=== PATIENT | male | born 1970 | race Caucasian/White ===

== ENCOUNTER 2020-10-10 07:09 | Emergency (ER) | payer OTHER ==
[~2020-10-10] VITALS: Ht 190.5 cm; Wt 120.2 kg
[~2020-10-10 07:09] MED LIST: CYCL-181; DIAZ5TAB; DULO60CA; MIRT-68; NAPR1TAB24; NOR10T; OME20GT
[2020-10-10] MEDS ORDERED: ASPirin 81 mg TAB PO ONE (07:30)
[2020-10-10] MEDS ORDERED: NITROGLYCERIN 0.4 MG SL TAB SL ONE (07:30)
[2020-10-10 07:45] LABS: Eosinophils # (auto) 0.1 10 ^3/uL (0-0.8); Hemoglobin 11.6 g/dL (13.5-17.5); Monocytes # (auto) 0.3 10 ^3/uL (0-1.3); Neutrophils # (auto) 3.2 10 ^3/uL (1.6-8.6); Nucleated Red Blood Cells % 0.1 %; White Blood Cell 4.7 10^3/uL (4.4-10.8)
[2020-10-10 07:49] LABS: Basophils # (auto) 0.1 10 ^3/uL (0-0.2); Basophils % (auto) 1.1 % (0.0-2.0); Eosinophils % (auto) 2.9 % (0.0-7.0); Lymphocytes % (auto) 21.8 % (10.0-50.0); Mean Corpuscular Hemoglobin 26.8 pg (28.0-32.0); Mean Corpuscular Volume 81.1 fL (80.0-100.0); Monocytes % (auto) 5.6 % (0.0-12.0); Neutrophils % (auto) 68.6 % (37.0-80.0); Red Blood Cells 4.32 10^6/uL (4.5-5.90); Red Cell Distribution Width 14.4 % (11.8-14.3)
[2020-10-10 07:59] LABS: Alanine Aminotransferase 19 U/L (16-61); Albumin 4.2 g/dL (3.4-5.0); Anion Gap 7 (5-15); Blood Urea Nitrogen 20 mg/dL (7-18); Calcium 8.7 mg/dL (8.5-10.1); Carbon Dioxide 24 mmol/L (21-32); Chloride 107 mmol/L (98-107); Glucose 112 mg/dL (74-106); Potassium 4.1 mmol/L (3.5-5.1); Sodium 138 mmol/L (136-145)
[2020-10-10 07:59] LABS: Urine Bacteria NONE SEEN /hpf (None Seen); Urine Blood Negative /uL (Negative); Urine Mucus FEW (None Seen); Urine Specific Gravity 1.012 (1.001-1.035); Urine WBC <1 /hpf (0 - 3)
[2020-10-10 08:05] LABS: Alkaline Phosphatase 39 U/L (45-117); Aspartate Aminotransferase 15 U/L (15-37); BUN/Creatinine Ratio 12.4; Bilirubin, Total 0.4 mg/dL (0.2-1.0); GFR African American 58 mL/min; GFR Non-African American 48 mL/min; Total Protein 7.4 g/dL (6.4-8.2)
[2020-10-10 08:49] VITALS: BP 117/72
== END 2020-10-10 08:49 | disposition home or self-care (01) ==
LOC: ER 07:09
DX: R07.89 Other chest pain (principal); I10 Essential (primary) hypertension; F17.210 Nicotine dependence, cigarettes, uncomplicated; Z79.899 Other long term (current) drug therapy
CPT/HCPCS: 36415; 71045; 80053; 81001; 84443; 84484; 85025; 93005

== ENCOUNTER 2024-12-09 16:03 | Inpatient (IN) | payer OTHER, MEDICARE ==
[~2024-12-09] VITALS: Ht 190.5 cm; Wt 113.4 kg
[~2024-12-09 16:03] MED LIST changes: +DIAZ-681; -DIAZ5TAB; -DULO60CA; +DULO60CA41; -MIRT-68; +MIRT-93
--- NOTE | 2024-12-09 16:12 | ECG ---
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
--- NOTE | 2024-12-09 16:28 | ED.PDOC ---
History of Present Illness HPI Comments 54-year-old male came to the ER stating he is having chest discomfort. He was at a restaurant after ordering food he started to have chest discomfort sweating. He went to the bathroom to wash his face when he almost passed out. His heart rate was 111 on arrival with saturation of 89 % on room air. He was placed on 2 L oxygen was went up to 92%. He does have a history of hypotension for which he takes amlodipine lisinopril metoprolol. He has never had any heart problems in the past. His blood sugar was 129 on arrival. Denies any other symptoms. Chief Complaint: Chest Pain Time Seen by MD: 16:10 Primary Care Provider: DR.G BRAUN Reviewed Notes: Nurses Notes, Medications, Allergies Allergies: Coded Allergies: NO KNOWN ALLERGIES (Unverified , 01/25/12) Home Meds Reported Medications Cyclobenzaprine Hcl (Flexeril) 10 Mg Tb 01/25/12 Mirtazapine (Remeron) 15 Mg Tab 01/25/12 Duloxetine Hcl (Cymbalta) 60 Mg Cap 01/25/12 Diazepam (Valium) 5 Mg Tab 01/25/12 Naproxen (Naproxen Ec) 500 Mg Tab 01/25/12 Hydrocodone-Acetaminophen ([place] 10/325MG) 1 Tab Tb 01/25/12 Omeprazole (Prilosec Susp (For Gt)) 20 Mg Ss 01/25/12 Information Source: Patient Mode of Arrival: Ambulatory Severity: Moderate Timing: Hours Duration: Since onset Past Medical History PAST MEDICAL HISTORY: HTN Surgical History: Denies all surgeries Family History Family History: Unknown Social History Smoker: Less Than 1 Pack/Day Alcohol: Denies ETOH Use Drugs: Denies Drug Use Lives In: Home Constitutional: denies: chills, diaphoresis, fatigue, fever, malaise, sweats, weakness, others EENTM: denies: blurred vision, double vision, ear bleeding, ear discharge, ear drainage, ear pain, ear ringing, eye pain, eye redness, hearing loss, mouth pain, mouth swelling, nasal discharge, nose bleeding, nose congestion, nose pain, photophobia, tearing, throat pain, throat swelling, voice changes, others Respiratory: denies: cough, hemoptysis, orthopnea, SOB at rest, shortness of breath, SOB with excertion, stridor, wheezing, others Cardiovascular: reports: chest pain; denies: dizzy spells, diaphoresis, Dyspnea on exertion, edema, irregular heart beat, left arm pain, lightheadedness, palpitations, PND, syncope, others Gastrointestinal: denies: abdomen distended, abdominal pain, blood streaked bowels, constipated, diarrhea, dysphagia, difficulty swallowing, hematemesis, melena, nausea, poor appetite, poor fluid intake, rectal bleeding, rectal pain, vomiting, others Genitourinary: denies: burning, dysuria, flank pain, frequency, hematuria, inc ontinence, penile discharge, penile sore, pain, testicle pain, testicle swelling, urgency, others Neurological: denies: dizziness, fainting, headache, left sided numbness, left sided weakness, numbness, paresthesia, pre-existing deficit, right sided numbness, right sided weakness, seizure, speech problems, tingling, tremors, weakness, others Musculoskeletal: denies: back pain, gout, joint pain, joint swelling, muscle pain, muscle stiffness, neck pain, others Integumetry: denies: bruises, change in color, change in hair/nails, dryness, laceration, lesions, lumps, rash, wounds, others Allergic/Immunocompromised: denies: Difficulty Healing, Frequent Infections, Hives, Itching, others Hematologic/Lymphatic: denies: anemia, blood clots, easy bleeding, easy bruising, swollen glands, others Endocrine: denies: excessive hunger, excessive sweating, excessive thirst, excessive urination, flushing, intolerance to cold, intolerance to heat, unexplained weight gain, unexplained weight loss, others Psychiatric: denies: anxiety, bipolar disorder, depression, hopeless, panic disorder, schizophrenia, sleepless, suicidal, others Physical Exam General Appearance: Moderate Distress HEENT: Normal ENT Inspection, Pharynx Normal, TMs Normal Neck: Full Range of Motion, Non-Tender, Normal, Normal Inspection Respiratory: Chest Non-Tender, Lungs Clear, No Accessory Muscle Use, No Respiratory Distress, Normal Breath Sounds Cardiovascular: Tachycardia Breast Exam: Deferred Gastrointestinal: No Organomegaly, Non Tender, No Pulsatile Mass, Normal Bowel Sounds, Soft Genitalia: Deferred Pelvic: Deferred Rectal: Deferred Extremities: No calf tenderness, Normal capillary refill, Normal inspection, Normal range of motion, Non-tender, No pedal edema Musculoskeletal : Apperance: Normal Neurologic: Alert, 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 Was a procedure done?: No EKG EKG : Pulse Rate (adult): 111 Cardiac Rhythm: ST Differential Dx Considerations may include: Coronary artery disease Electrolyte imbalance X-Ray, Labs, Meds, VS Vital Signs Date Time Temp Pulse Resp B/P (MAP) Pulse Ox O2 Delivery O2 Flow Rate FiO2 12/09/24 16:55 94 12/09/24 16:52 99 20 128/77 12/09/24 16:40 128/77 12/09/24 16:28 111 12/09/24 16:20 98.2 100 19 120/79 (93) 94 98.2 12/09/24 16:08 101 Lab Test 12/09/24 17:16 12/09/24 16:21 12/09/24 16:10 Range/Units Troponin I High Sensitivity Pending 11 </=54 ng/L White Blood Count 11.3 H 4.4-10.8 10^3/uL Red Blood Count 4.70 4.5-5.90 10^6/uL Hemoglobin 12.0 L 13.5-17.5 g/dL Hematocrit 36.7 L 41.0-53.0 % Mean Corpuscular Volume 78.1 L 80.0-100.0 fL Mean Corpuscular Hemoglobin 25.5 L 28.0-32.0 pg Mean Corpuscular Hemoglobin Concent 32.6 32.0-36.0 g/dL Red Cell Distribution Width 15.2 H 11.8-14.3 % Platelet Count 263 140-450 10^3/uL Mean Platelet Volume 9.2 6.9-10.8 fL Neutrophils (%) (Auto) 73.1 37.0-80.0 % Lymphocytes (%) (Auto) 21.1 10.0-50.0 % Monocytes (%) (Auto) 3.6 0.0-12.0 % Eosinophils (%) (Auto) 1.8 0.0-7.0 % Basophils (%) (Auto) 0.4 0.0-2.0 % Neutrophils # (Auto) 8.3 1.6-8.6 10 ^3/uL Lymphocytes # (Auto) 2.4 0.4-5.4 10 ^3/uL Monocytes # (Auto) 0.4 0-1.3 10 ^3/uL Eosinophils # (Auto) 0.2 0-0.8 10 ^3/uL Basophils # (Auto) 0 0-0.2 10 ^3/uL Nucleated Red Blood Cells 0.0 % D-Dimer, Quantitative 0.36 0.0-0.49 mg/L FEU Sodium Level 138 136-145 mmol/L Potassium Level 3.8 3.5-5.1 mmol/L Chloride Level 106 98-107 mmol/L Carbon Dioxide Level 21 20-31 mmol/L Anion Gap 11 5-15 Blood Urea Nitrogen 16 9-23 mg/dL Creatinine 1.37 H 0.700-1.30 mg/dL Glomerular Filtration Rate Calc 61 >90 mL/min BUN/Creatinine Ratio 11.7 10.0-20.0 Serum Glucose 146 H 74-106 mg/dL Calcium Level 9.4 8.7-10.4 mg/dL POC Glucose 129 H 70-106 mg/dl Current Medications Medications (Trade) Dose Ordered Sig/Kary Route Start Time Stop Time Status Last Admin Aspirin (Ecotrin Enteric Coated Tablet) 325 mg ONCE ONCE PO 12/09/24 16:30 12/09/24 16:31 DC 12/09/24 16:41 Morphine Sulfate 4 mg ONCE ONCE IV 12/09/24 16:30 12/09/24 16:31 DC 12/09/24 16:52 Ondansetron HCl (Zofran) 4 mg ONCE ONCE IV 12/09/24 16:30 12/09/24 16:31 DC 12/09/24 16:41 Nitroglycerin (Ntrostat Sublingual) 0.4 mg ONCE ONCE SL 12/09/24 16:30 12/09/24 16:31 DC 12/09/24 16:40 Patient alert pain Complaining of chest pain. Saturation in the low side. Placed on oxygen. EKG reviewed does show sinus tachycardia. Patient continues to have chest discomfort. Has risk factors for coronary artery disease. Was given aspirin. Was given nitro. Was given morphine. Was given Zofran. Reviewed his history. Explained to the patient. Continue cardiac monitoring. Possibly will need echocardiogram. Cardiology consultation. Blood sugar elevated. [employer] approved inpatient admission [phone]. Time of 1ST Reevaluation: 16:26 Reevaluation 1ST: Unchanged Patient Education/Counseling: Diagnosis, Treatment, Prognosis Family Education/Counseling: No Family Present Departure 1 Departure Time of Disposition: 16:27 Impression: Primary Impression: Chest pain of unknown etiology Additional Impressions: HTN (hypertension) Qualified Codes: I10 - Essential (primary) hypertension Diabetes mellitus, new onset Disposition: ADMITTED INPATIENT Admit to: Med Surg Condition: Guarded Critical Care Note Critical Care Time?: Yes (90 min-critical care time only) Critical care comment: Continue monitor chest discomfort. Stability Stability form required: No Heart Score Heart Score: Heart Score Response (Comments) Value History Slightly Suspicious 0 EKG Normal 0 Age 45-64 1 Risk Factors >3 or Hx ASHD 2 Troponin Normal limit 0 Total 3 MANDA PRESSLEY MD December 09, 2024 16:28
[2024-12-09] MEDS: NITROGLYCERIN 0.4 MG SL TAB SL ONE (16:40)
[2024-12-09] MEDS: ASPirin-EC 325mg tab PO ONE (16:41)
[2024-12-09] MEDS: ONDANSETRON HCL 4 MG/2 ML VIAL IV ONE (16:41)
[2024-12-09 16:47] LABS: Chloride 106 mmol/L (98-107); Potassium 3.8 mmol/L (3.5-5.1); Sodium 138 mmol/L (136-145)
[2024-12-09 16:48] LABS: Anion Gap 11 (5-15); Carbon Dioxide 21 mmol/L (20-31)
[2024-12-09 16:49] LABS: Calcium 9.4 mg/dL (8.7-10.4)
[2024-12-09 16:50] LABS: Basophils # (auto) 0 10 ^3/uL (0-0.2); Basophils % (auto) 0.4 % (0.0-2.0); Eosinophils # (auto) 0.2 10 ^3/uL (0-0.8); Eosinophils % (auto) 1.8 % (0.0-7.0); Hematocrit 36.7 % (41.0-53.0); Lymphocytes # (auto) 2.4 10 ^3/uL (0.4-5.4); Lymphocytes % (auto) 21.1 % (10.0-50.0); Mean Corpuscular Hemoglobin 25.5 pg (28.0-32.0); Mean Corpuscular Hgb Conc. 32.6 g/dL (32.0-36.0); Mean Corpuscular Volume 78.1 fL (80.0-100.0); Monocytes # (auto) 0.4 10 ^3/uL (0-1.3); Monocytes % (auto) 3.6 % (0.0-12.0); Neutrophils # (auto) 8.3 10 ^3/uL (1.6-8.6); Neutrophils % (auto) 73.1 % (37.0-80.0); Platelet Count (auto) 263 10^3/uL (140-450); Red Cell Distribution Width 15.2 % (11.8-14.3); White Blood Cell 11.3 10^3/uL (4.4-10.8)
[2024-12-09] MEDS: MORPHINE SULFATE 4 MG/ML SYR/VIAL IV ONE (16:52)
[2024-12-09 16:53] LABS: BUN/Creatinine Ratio 11.7 (10.0-20.0); Blood Urea Nitrogen 16 mg/dL (9-23)
[2024-12-09 17:00] LABS: Glucose 146 mg/dL (74-106)
--- NOTE | 2024-12-09 18:09 | DVH ---
EXAM: XY CHEST PORTABLE TECHNIQUE: Single frontal chest radiograph CLINICAL HISTORY: sob COMPARISON: CHEST PORTABLE on DOS: 10/10/20 Findings/Impression: Frontal chest radiograph demonstrates no acute osseous or superficial soft tissue abnormalities. The trachea is midline. The cardiac silhouette and mediastinum are within normal limits. Right basilar atelectasis versus developing infection. No pneumothorax or pleural effusions.
--- NOTE | 2024-12-09 18:34 | ECG ---
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
[2024-12-09] MEDS ORDERED: MORPHINE SULFATE INJ 2 MG/ml SYRG IV PRN ×2 (21:00)
[2024-12-09] MEDS ORDERED: NITROGLYCERIN 0.4 MG SL TAB SL PRN (21:00)
--- NOTE | 2024-12-09 21:01 | DVHHP2 ---
History of Present Illness Reason for Visit: chest pain History of Present Illness A 54y old with PMHx HTN, GERD, chronic lumbar pain and anxiety who came to ED for chest pain. Patient stated that the pain started 3 days ago, he stated as a chest discomfort like pressure sensation and he assumed was GERD, but today 12/09/24 afternoon, he was having lunch in a restaurant an started to have a worse chest discomfort, diaphoresis and lightheadedness. His heart rate was 111 on arrival with saturation of 89 % on room air. He was placed on 2 L oxygen was went up to 92%. He has never had any heart problems in the past. His blood sugar was 129 on arrival. Denies any other symptoms. Patient stated the pain is pleuritic in nature and at rest Past Medical History PAST MEDICAL HISTORY: HTN, GERD, chronic lumbar pain and anxiety Surgical History: Multiple spine surgeries Social History Smoker: Former heavy smoker Alcohol: Denies ETOH Use Drugs: Denies Drug Use Lives In: Home Review of Systems Constitutional: No: Fever, Chills, Sweats, Weakness, Malaise, Other Eyes: No: Pain, Vision change, Conjunctivae inflammation, Eyelid inflammation, Other, Redness ENT: No: Ear pain, Ear discharge, Nose pain, Nose discharge, Nose congestion, Mouth pain, Mouth swelling, Throat pain, Throat swelling, Other Respiratory: No: Cough, Dry, Shortness of breath, SOB with excertion, Wheezing, Hemoptysis, Pleuritic Pain, Sputum, Wheezing, Other Cardiovascular: Chest Pain; No: Palpitations, Orthopnea, Paroxysmal Noc. Dyspnea, Edema, Lt Headedness, Other Genitourinary: No Dysuria, No Frequency, No Incontinence, No Hematuria, No Retention, No Other Musculoskeletal: No: other, neck pain, shoulder pain, arm pain, back pain, hand pain, leg pain, foot pain Skin: No: Rash, Lesions, Jaundice, Bruising, Other Neurological: Weakness; No: Numbness, Incoordination, Change in speech, Confusion, Seizures, Other Allergies: Coded Allergies: NO KNOWN ALLERGIES (Unverified , 01/25/12) Medications Current Medications Medications Dose Ordered Sig/Kary Route Start Time Stop Time Status Last Admin Dose Admin Acetaminophen 650 mg Q6HP PRN PO 12/09/24 21:00 UNV Morphine Sulfate 2 mg Q4HPRN PRN IV 12/09/24 21:00 UNV Enoxaparin Sodium 40 mg DAILY SC 12/10/24 10:00 UNV Nitroglycerin 0.4 mg Q5MINP PRN SL 12/09/24 21:00 UNV Morphine Sulfate 2 mg Q30M PRN IV 12/09/24 21:00 UNV Oxycodone HCl 20 mg Q12HR PO 12/09/24 22:00 UNV Aspirin 81 mg DAILY PO 12/10/24 10:00 UNV Atorvastatin Calcium 20 mg HS PO 12/09/24 22:00 UNV Metoprolol Succinate 50 mg DAILY PO 12/10/24 10:00 UNV Exam Vital Signs Vital Signs Date Time Temp Pulse Resp B/P (MAP) Pulse Ox O2 Delivery O2 Flow Rate FiO2 12/09/24 17:34 105/76 12/09/24 17:34 85 20 12/09/24 16:20 98.2 94 98.2 General Appearance: Alert, Oriented X3 HEENT: Atraumatic, PERRLA Respiratory: Clear to auscultation, Normal air movement Cardiovascular: Regular rate, Normal S1 Abdominal: Normal bowel sounds, Soft Extremities: No clubbing, No cyanosis Skin: No rashes, No breakdown Neuro: Normal gait, Normal speech Psych/Mental Status: Mental status NL Labs/Xrays Labs Test 12/09/24 19:06 12/09/24 16:21 12/09/24 16:10 Range/Units Troponin I High Sensitivity 11 </=54 ng/L White Blood Count 11.3 H 4.4-10.8 10^3/uL Red Blood Count 4.70 4.5-5.90 10^6/uL Hemoglobin 12.0 L 13.5-17.5 g/dL Hematocrit 36.7 L 41.0-53.0 % Mean Corpuscular Volume 78.1 L 80.0-100.0 fL Mean Corpuscular Hemoglobin 25.5 L 28.0-32.0 pg Mean Corpuscular Hemoglobin Concent 32.6 32.0-36.0 g/dL Red Cell Distribution Width 15.2 H 11.8-14.3 % Platelet Count 263 140-450 10^3/uL Mean Platelet Volume 9.2 6.9-10.8 fL Neutrophils (%) (Auto) 73.1 37.0-80.0 % Lymphocytes (%) (Auto) 21.1 10.0-50.0 % Monocytes (%) (Auto) 3.6 0.0-12.0 % Eosinophils (%) (Auto) 1.8 0.0-7.0 % Basophils (%) (Auto) 0.4 0.0-2.0 % Neutrophils # (Auto) 8.3 1.6-8.6 10 ^3/uL Lymphocytes # (Auto) 2.4 0.4-5.4 10 ^3/uL Monocytes # (Auto) 0.4 0-1.3 10 ^3/uL Eosinophils # (Auto) 0.2 0-0.8 10 ^3/uL Basophils # (Auto) 0 0-0.2 10 ^3/uL Nucleated Red Blood Cells 0.0 % D-Dimer, Quantitative 0.36 0.0-0.49 mg/L FEU Sodium Level 138 136-145 mmol/L Potassium Level 3.8 3.5-5.1 mmol/L Chloride Level 106 98-107 mmol/L Carbon Dioxide Level 21 20-31 mmol/L Anion Gap 11 5-15 Blood Urea Nitrogen 16 9-23 mg/dL Creatinine 1.37 H 0.700-1.30 mg/dL Glomerular Filtration Rate Calc 61 >90 mL/min BUN/Creatinine Ratio 11.7 10.0-20.0 Serum Glucose 146 H 74-106 mg/dL Calcium Level 9.4 8.7-10.4 mg/dL POC Glucose 129 H 70-106 mg/dl Assessment/Plan Assessment/Plan #Chest pain #Rule out ACS: unstable angina #New onset of acute respiratory failure #PE ruled out #Possible COPD exacerbation? #Ex heavy smoker #Early sepsis? #Chronic lumbar pain #Hypertension #Hyperlipidemia #GERD #OSMANY on possible CKD Admit Telemetry Aspirin Atorvastatin IV AB: azithromycin + ceftriaxone Lisinopril PO Metoprolol PO Prednisone PO Pending ECHO, covid, influenza, cardiology consult SS consult: patient has [employer] insurance- NEVAREZ AUTH TO ADMIT #[id number] Case discussed with Dr Martin Full code Plan discussed with: Patient, Other (rn) My Orders Orders - LENA GEORGE RESIDENT Procedure Category Date Status Time Admit ADMIT 12/09/24 Transmitted 20:53 Code Status CODE 12/09/24 Transmitted 20:53 Vital Signs SHALA 12/09/24 In Process 20:53 Review Orders With [facility] 12/09/24 In Process Adm. 20:53 Consistent DIET 12/10/24 Transmitted Carb(Ccho)Diabetes Breakfast Acetaminophen Tablet PHA 12/09/24 Logged (Tylenol Tablet) 21:00 Notify Md Of Changes [facility] 12/09/24 In Process From Base 20:53 Advance Directive [facility] 12/09/24 In Process 20:53 Patient Condition ORDERS 12/09/24 Transmitted 20:53 Allergies SHALA 12/09/24 In Process 20:53 Morphine Sulfate [facility] 12/09/24 Logged Injection 21:00 Enoxaparin Sodium [facility] 12/10/24 Logged (Lovenox) 10:00 Nitroglycerin [facility] 12/09/24 Logged Sublingual (Ntrostat 21:00 Morphine Sulfate [facility] 12/09/24 Logged Injection 21:00 Oxygen By Nasal RT 12/09/24 Transmitted Cannula 20:53 Stat Ekg For Chest [facility] 12/09/24 In Process Pain 20:53 Notify Of Changes [facility] 12/09/24 In Process From Base 20:53 Phlebotomy Supervisor For [facility] 12/09/24 In Process 24 Hours 20:53 Emergency Dysrhythmia [facility] 12/09/24 In Process Protocol 20:53 Rhythm Strips Once [facility] 12/09/24 In Process Every Shift 20:53 Oxycodone Er Tablet PHA 12/09/24 Transmitted (Oxycontin Er Tablet 22:00 Aspirin Tablet PHA 12/10/24 Transmitted 10:00 Atorvastatin (Lipitor) PHA 12/09/24 Transmitted 22:00 Metoprolol Xl PHA 12/10/24 Transmitted Succinate (Toprol Xl) 10:00 Lisinopril Tablet [facility] 12/10/24 Transmitted (Zestril Tablet) 10:00 Echo 2d Mode Cardiac US 12/09/24 Logged DOP 20:53 * Cardiology Consult CONS 12/09/24 Transmitted 20:53 * Senior Chemist CONS 12/09/24 Transmitted Consult Pantoprazole PHA 12/10/24 Transmitted (Protonix) 10:00 Date of Service: December 09, 2024 Billing Provider: BJ MARTIN MD Common Visit Codes: [id number] INP/OBS CARE (HIGH) Secondary Visit Codes: [id number] CARE PLAN 30 MINUTES LENA GEORGE RESIDENT December 09, 2024 21:00
[2024-12-09 23:06] VITALS: PULSE 70; RESP 20; O2SAT 97
[2024-12-09 23:28] VITALS: BP 117/87; PULSE 73; RESP 14; TEMP 98; O2SAT 97
[2024-12-09] MEDS ORDERED: OMEP20TA PO (23:54)
[2024-12-09] MEDS ORDERED: METO25TA5 PO (23:58)
[2024-12-09] MEDS ORDERED: ATOR20TA50 PO (23:58)
[2024-12-09] MEDS ORDERED: NAPR-957 PO (23:58)
[2024-12-09] MEDS ORDERED: OXY5T PO (23:58)
[2024-12-09] MEDS ORDERED: LISI20TA56 PO (23:58)
[2024-12-09] MEDS ORDERED: AML5T PO (23:58)
[2024-12-10] MEDS: ATORVASTATIN 20 MG TAB PO SCH (00:14)
[2024-12-10] MEDS: oxyCODONE ER 20 MG TAB PO SCH (00:15)
[2024-12-10] MEDS: cefTRIAXone 1GM/50ML D5W 50 ML IV SCH (03:39)
[2024-12-10] MEDS: ACETAMINOPHEN 325 MG TAB PO PRN (04:07)
[2024-12-10 04:15] VITALS: BP 105/69; PULSE 62; RESP 18; TEMP 97.8; O2SAT 96
[2024-12-10] MEDS: AZITHROMYCIN 500MG/ 250ML 250 ML IV ONE (04:15)
[2024-12-10 04:42] LABS: Mean Corpuscular Volume 77.3 fL (80.0-100.0); Red Cell Distribution Width 15.1 % (11.8-14.3)
[2024-12-10 04:47] LABS: Basophils # (auto) 0.1 10 ^3/uL (0-0.2); Basophils % (auto) 0.9 % (0.0-2.0); Eosinophils # (auto) 0.3 10 ^3/uL (0-0.8); Eosinophils % (auto) 4.1 % (0.0-7.0); Hemoglobin 11.8 g/dL (13.5-17.5); Lymphocytes # (auto) 2.1 10 ^3/uL (0.4-5.4); Lymphocytes % (auto) 33.5 % (10.0-50.0); Mean Corpuscular Hgb Conc. 33.6 g/dL (32.0-36.0); Monocytes # (auto) 0.3 10 ^3/uL (0-1.3); Monocytes % (auto) 5.2 % (0.0-12.0); Neutrophils # (auto) 3.6 10 ^3/uL (1.6-8.6); Neutrophils % (auto) 56.3 % (37.0-80.0); Nucleated Red Blood Cells % 0.1 %; Platelet Count (auto) 239 10^3/uL (140-450); Red Blood Cells 4.52 10^6/uL (4.5-5.90); White Blood Cell 6.3 10^3/uL (4.4-10.8)
[2024-12-10 04:56] LABS: INR 0.99 (0.9-1.15); Partial Thromboplastin Time 28.5 SEC (24.5-34.5); Prothrombin Time 10.5 sec (9.3-11.8)
[2024-12-10 05:04] LABS: Alanine Aminotransferase 17 U/L (7-40); Albumin 4.7 g/dL (3.2-4.8); Alkaline Phosphatase 86 U/L (46-116); Anion Gap 9 (5-15); Blood Urea Nitrogen 13 mg/dL (9-23); Calcium 9.8 mg/dL (8.7-10.4); Carbon Dioxide 26 mmol/L (20-31); Chloride 105 mmol/L (98-107); LDL Cholesterol 75 mg/dL (< 100); Potassium 4.1 mmol/L (3.5-5.1); Sodium 140 mmol/L (136-145); Total Protein 7.2 g/dL (5.7-8.2); Triglycerides 112 mg/dL (< 150)
[2024-12-10 05:05] LABS: Bilirubin, Total 0.3 mg/dL (0.2-1.0); Cholesterol 137 mg/dL (< 200); HDL Cholesterol 43 mg/dL (40-59)
[2024-12-10 05:06] LABS: Aspartate Aminotransferase 9 U/L (13-40); Glucose 109 mg/dL (74-106)
[2024-12-10 07:16] LABS: COVID19 ANTIGEN SOFIA FIA NEGATIVE (NEGATIVE); Rapid Influenza A Negative (Negative); Rapid Influenza B Negative (Negative)
[2024-12-10 08:46] VITALS: BP_SYST 118; BP_SYST 124; BP_SYST 125; BP_DIAS 57; BP_DIAS 73; BP_DIAS 79; PULSE 77; PULSE 84; PULSE 94; RESP 18; TEMP 97.6; O2SAT 97
[2024-12-10] MEDS: ENOXAPARIN SOD 40 MG/0.4 ML SYRINGE SC SCH (09:39)
[2024-12-10] MEDS: LISINOPRIL 20 MG TAB PO SCH (09:40)
[2024-12-10] MEDS: predniSONE 20 MG TAB PO SCH (09:40)
[2024-12-10] MEDS: METOPROLOL SUCCINATE XL 50 MG TAB PO SCH (09:40)
[2024-12-10] MEDS: ASPirin 81 mg TAB PO SCH (09:41)
--- NOTE | 2024-12-10 10:13 | DVHINCON2 ---
Date Seen: December 10, 2024 Referring Physician MD Charly Reason for Consultation Chest pain History of Present Illness This is a 54-year-old man who presented to the emergency room with a chief complaint of chest pain since Tuesday night. Describes his chest pain as substernal, intermittent, nonradiating, non provoked, described as a heartburn sensation and an elephant sitting on his chest, worse with cough, and associated with some dizziness. He underwent multiple 12 lead electrocardiograms x2 revealing a sinus rhythm with nonspecific lateral ST changes. Serial troponin levels are negative. Significant medical history includes hypertension, dyslipidemia, GERD, chronic back pain, anxiety, and obesity. Past Medical History Past medical history reviewed. No other significant than mentioned above. Past Surgical History Lumbar spine Family History: Cardiovascular disease G8 MOTHER FH: CABG (coronary artery bypass surgery) G8 MOTHER Hypertension G8 FATHER Family History Family history reviewed. Social History Denies the use of illicit drugs, alcohol, or tobacco use. Allergies: Coded Allergies: NO KNOWN ALLERGIES (Unverified , 01/25/12) Home Meds Reported Medications Atorvastatin Calcium (ATORVASTATIN CALCIUM) 20 Mg Tab, 1 TAB PO DAILY, #30 TAB 5 Refills 12/09/24 Lisinopril (Lisinopril) 20 Mg Tab, 20 MG PO DAILY, TAB 12/09/24 Metoprolol Tartrate (Metoprolol Tartrate) 25 Mg Tab, 20 MG PO DAILY for 30 Days, MG 12/09/24 Amlodipine Besylate (NORVASC TABLET) 5 Mg Tb, 5 MG PO DAILY, TAB 12/09/24 Oxycodone Hcl (OXYCODONE HCL) 5 Mg Tb, 20 MG PO BID, TAB 12/09/24 Naproxen (Naproxen) 375 Mg Tab, 500 MG PO BID, TAB 12/09/24 Omeprazole (Gnp Omeprazole) 20 Mg Tab, 20 MG PO BID, TAB 12/09/24 Discontinued Reported Medications Cyclobenzaprine Hcl (Flexeril) 10 Mg Tb 01/25/12 Mirtazapine (Remeron) 15 Mg Tab 01/25/12 Duloxetine Hcl (Cymbalta) 60 Mg Cap 01/25/12 Diazepam (Valium) 5 Mg Tab 01/25/12 Naproxen (Naproxen Ec) 500 Mg Tab 01/25/12 Hydrocodone-Acetaminophen (Lorena 10/325MG) 1 Tab Tb 01/25/12 Omeprazole (Prilosec Susp (For Gt)) 20 Mg Ss 01/25/12 Home Meds Home medications reviewed. Current Medications Current Medications Medications (Trade) Dose Ordered Sig/Kary Route PRN Reason Start Time Stop Time Status Last Admin Acetaminophen (Tylenol Tablet) 650 mg Q6HP PRN PO PAIN SCALE 1-3 OR TEMP>100.4 12/09/24 21:00 12/10/24 04:07 Morphine Sulfate 2 mg Q4HPRN PRN IV SEVERE PAIN (7-10 PAIN SCALE) 12/09/24 21:00 Enoxaparin Sodium (Lovenox) 40 mg DAILY SC 12/10/24 10:00 12/10/24 09:39 Nitroglycerin (Ntrostat Sublingual) 0.4 mg Q5MINP PRN SL FOR CHEST PAIN 12/09/24 21:00 Morphine Sulfate 2 mg Q30M PRN IV FOR CHEST PAIN 12/09/24 21:00 Oxycodone HCl (OxyCONTIN ER Tablet) 20 mg Q12HR PO 12/09/24 22:00 12/10/24 09:40 Aspirin 81 mg DAILY PO 12/10/24 10:00 12/10/24 09:41 Atorvastatin Calcium (Lipitor) 20 mg HS PO 12/09/24 22:00 12/10/24 00:14 Metoprolol Succinate (Toprol Xl) 50 mg DAILY PO 12/10/24 10:00 12/10/24 09:40 Lisinopril (Zestril Tablet) 20 mg DAILY PO 12/10/24 10:00 12/10/24 09:40 Pantoprazole Sodium (Protonix) 40 mg DAILY IV 12/10/24 10:00 Azithromycin 250 ml @ 125 mls/hr DAILY IV 12/11/24 10:00 Prednisone 40 mg DAILY PO 12/10/24 10:00 12/10/24 09:40 Ceftriaxone Sodium 50 ml @ 100 mls/hr DAILY@09 IV 12/10/24 03:00 12/10/24 08:07 Review of Systems Constitutional: No symptom reported Ears, Nose, & Throat: No symptom reported Eyes: No symptom reported Neurological: No symptoms reported Pulmonary/Respiratory: No symptom reported Cardiovascular: Chest pain Gastrointestinal: No symptom reported Genitourinary: No symptom reported Musculoskeletal: No symptom reported Skin: No symptom reported Psychiatric: No symptom reported Endocrine: No symptom reported Hemotologic/Lymphatic: No symptom reported Vital Signs Vital Signs Date Time Temp Pulse Resp B/P (MAP) Pulse Ox O2 Delivery O2 Flow Rate FiO2 12/10/24 09:40 118/57 12/10/24 09:40 77 12/10/24 08:46 97.6 18 97 97.6 12/09/24 23:06 Nasal Cannula* 2 28 Physical Exam General Appearance: Cooperative. Well developed. Well nourished. In no acute distress Head Exam: Normal inspection Neck Exam: Normal inspection. Non-tender. Normal alignment Pulmonary/Respiratory: Chest non-tender. Clear bilateral breath sounds Cardiovascular/Chest: Regular rate and rhythm. S1, S2. No murmurs. No JVD. Peripheral Pulses: 2+ Radial (R). 2+ Radial (L). 2+ Pedal (R). 2+ Pedal (L) Abdominal Exam: Normal bowel sounds. Soft. Nontender. No hepatospenomegaly. No masses Ankle Exam: Negative ankle edema Lower extremities: Negative lower extremity edema Neuro/Mental Status: A&O x4. Coherent Thoughts/Psych: Normal thought pattern. Appropriate mood and affect. Good judgement and insight Appearance: In no acute distress Skin Exam: Normal inspection. Normal color. Warm. Dry Labs/Diagnostic Data Labs Test 12/10/24 06:41 12/10/24 04:14 12/09/24 19:06 12/09/24 16:21 Range/Units Influenza Type A Antigen Negative Negative Influenza Type B Antigen Negative Negative SARS-CoV-2 Antigen (Rapid) Negative NEGATIVE White Blood Count 6.3 # 4.4-10.8 10^3/uL Red Blood Count 4.52 4.5-5.90 10^6/uL Hemoglobin 11.8 L 13.5-17.5 g/dL Hematocrit 35.0 L 41.0-53.0 % Mean Corpuscular Volume 77.3 L 80.0-100.0 fL Mean Corpuscular Hemoglobin 26.0 L 28.0-32.0 pg Mean Corpuscular Hemoglobin Concent 33.6 32.0-36.0 g/dL Red Cell Distribution Width 15.1 H 11.8-14.3 % Platelet Count 239 140-450 10^3/uL Mean Platelet Volume 9.0 6.9-10.8 fL Neutrophils (%) (Auto) 56.3 37.0-80.0 % Lymphocytes (%) (Auto) 33.5 10.0-50.0 % Monocytes (%) (Auto) 5.2 0.0-12.0 % Eosinophils (%) (Auto) 4.1 0.0-7.0 % Basophils (%) (Auto) 0.9 0.0-2.0 % Neutrophils # (Auto) 3.6 1.6-8.6 10 ^3/uL Lymphocytes # (Auto) 2.1 0.4-5.4 10 ^3/uL Monocytes # (Auto) 0.3 0-1.3 10 ^3/uL Eosinophils # (Auto) 0.3 0-0.8 10 ^3/uL Basophils # (Auto) 0.1 0-0.2 10 ^3/uL Nucleated Red Blood Cells 0.1 % Prothrombin Time 10.5 9.3-11.8 sec Prothrombin Time INR 0.99 0.9-1.15 Activated Partial Thromboplast Time 28.5 24.5-34.5 SEC Sodium Level 140 136-145 mmol/L Potassium Level 4.1 3.5-5.1 mmol/L Chloride Level 105 98-107 mmol/L Carbon Dioxide Level 26 20-31 mmol/L Anion Gap 9 5-15 Blood Urea Nitrogen 13 9-23 mg/dL Creatinine 1.30 0.700-1.30 mg/dL Glomerular Filtration Rate Calc 64 >90 mL/min BUN/Creatinine Ratio 10.0 10.0-20.0 Serum Glucose 109 H 74-106 mg/dL Hemoglobin A1c 5.6 <5.7 % A1C Calcium Level 9.8 8.7-10.4 mg/dL Total Bilirubin 0.3 0.2-1.0 mg/dL Aspartate Amino Transferase (AST) 9 L 13-40 U/L Alanine Aminotransferase (ALT) 17 7-40 U/L Alkaline Phosphatase 86 46-116 U/L Total Protein 7.2 5.7-8.2 g/dL Albumin 4.7 3.2-4.8 g/dL Triglycerides Level 112 < 150 mg/dL Cholesterol Level 137 < 200 mg/dL LDL Cholesterol 75 < 100 mg/dL HDL Cholesterol 43 40-59 mg/dL Thyroid Stimulating Hormone (TSH) 4.13 0.55-4.78 uIU/mL Troponin I High Sensitivity 11 </=54 ng/L C-Reactive Protein High Sensitivity 3.26 H <1.0 mg/dL D-Dimer, Quantitative 0.36 0.0-0.49 mg/L FEU Test 12/09/24 16:10 Range/Units POC Glucose 129 H 70-106 mg/dl Assessment Probable cardiac chest pain rule out coronary artery disease Rule out structural heart disease Prediabetes, newly diagnosed Hypertension GERD Chronic back pain Obesity Plan/Recommendation (Dr. Argueta) The patient presents with a heart score of 5 placing him at a moderate-risk for major cardiac events. He is scheduled for a transthoracic echocardiogram to evaluate cardiac function and a Cardiolite stress test to rule out coronary ischemia. In the meantime, continue single-antiplatelet therapy and lipid lowering agent. DVT/VTE prophylaxis. Monitor ECG changes and notify. Thank you for allowing us to participate in this patient's care. Please call if you have any questions or concerns. This medical document was created using an electronic medical record system with voice recognition software and computerized dictation system. Although this document has been carefully reviewed, there might still be some phonetic and typographical errors. Occasional wrong-word or ``sound-alike�� substitutions may have occurred due to the inherent limitations of voice recognition software. These areas are purely typographical due to imperfections of the software programs and do not reflect any compromise in the patient's medical care. Please read the chart carefully and recognize, using context, where these substitutions have occurred. Plan discussed with: Patient, Other NYHA Physical activity limitations: NA Date of Service: December 10, 2024 Billing Provider: CHUCKY ORTEGA Cardiology Common Codes: [id number] INP/OBS CARE (High) CHUCKY ORTEGA December 10, 2024 10:13
[2024-12-10 10:22] LABS: Opiate Scree,Urine Neg (NEGATIVE)
[2024-12-10 10:23] LABS: Amphetamine Screen, Urine Neg (NEGATIVE); Barbiturate Scree,Urine Neg (NEGATIVE); Benzodiazephine Screen, Urine Neg (NEGATIVE); Cannabinoid Screen, Urine Neg (NEGATIVE); Cocaine Screen, Urine Neg (NEGATIVE); Phencyclidine Screen, Urine Neg (NEGATIVE)
[2024-12-10] MEDS: REGADENOSON 0.4 MG/5 ML SYRG IV ONE ×2 (10:48)
[2024-12-10] MEDS: PANTOPRAZOLE 40 MG/10 ML VIAL INJ IV SCH (11:17)
--- NOTE | 2024-12-10 12:41 | DVHPN2 ---
Progress Note Date Seen: December 10, 2024 Medical Necessity Reason Pt with a Central, PICC or Fol: No Subjective Patient reports: No new complaints Review of Systems: HEENT:Normal, CVS:Normal, RESPIRATORY:Normal, GI:Normal, :Normal, MSK:Normal, NEURO:Normal Objective vital signs Vital Sign Date Time Temp Pulse Resp B/P (MAP) Pulse Ox O2 Delivery O2 Flow Rate FiO2 12/10/24 09:40 118/57 12/10/24 09:40 77 12/10/24 08:46 97.6 18 97 97.6 12/09/24 23:06 Nasal Cannula* 2 28 Total Intake and Output 12/09/24 12/09/24 12/10/24 14:59 22:59 06:59 Intake Total 300 ml Balance 300 ml medications Current Medications Medications Dose Ordered Sig/Kary Route Start Time Stop Time Status Last Admin Dose Admin Acetaminophen 650 mg Q6HP PRN PO 12/09/24 21:00 12/10/24 04:07 650 MG Morphine Sulfate 2 mg Q4HPRN PRN IV 12/09/24 21:00 Enoxaparin Sodium 40 mg DAILY SC 12/10/24 10:00 12/10/24 09:39 40 MG Nitroglycerin 0.4 mg Q5MINP PRN SL 12/09/24 21:00 Morphine Sulfate 2 mg Q30M PRN IV 12/09/24 21:00 Oxycodone HCl 20 mg Q12HR PO 12/09/24 22:00 12/10/24 09:40 20 MG Aspirin 81 mg DAILY PO 12/10/24 10:00 12/10/24 09:41 81 MG Atorvastatin Calcium 20 mg HS PO 12/09/24 22:00 12/10/24 00:14 20 MG Metoprolol Succinate 50 mg DAILY PO 12/10/24 10:00 12/10/24 09:40 50 MG Lisinopril 20 mg DAILY PO 12/10/24 10:00 12/10/24 09:40 20 MG Pantoprazole Sodium 40 mg DAILY IV 12/10/24 10:00 12/10/24 11:17 40 MG Azithromycin 250 ml @ 125 mls/hr DAILY IV 12/11/24 10:00 Prednisone 40 mg DAILY PO 12/10/24 10:00 12/10/24 09:40 40 MG Ceftriaxone Sodium 50 ml @ 100 mls/hr DAILY@09 IV 12/10/24 03:00 12/10/24 08:07 100 MLS/HR Examination: GENERAL:Normal, HEENT:Normal, NECK:Normal, LUNGS:Normal, CVS:Normal, ABDOMEN:Normal, MSK:Normal, SKIN:Normal, NEURO:Normal, :Normal laboratory and microbiology Laboratory Tests 12/10/24 04:14 Test 12/10/24 04:14 Range/Units Serum Glucose 109 H 74-106 mg/dL Problem List/Assessment/Plan Problem List/Assessment/Plan #1 chest pain ?cad: stress test #2 htn #3 obesity #4 ?ckd stage 3 #5 djd spine/chronic pain #6 anxiety/depression advance care planning- full code- time spent 18 mins Plan discussed with: Patient My Orders My Orders Orders - SUZETTE ARRIAGA MD Procedure Category Date Status Time Urinalysis LAB 12/10/24 Uncollected 12:36 Basic Metabolic Panel LAB 12/11/24 Verified 06:00 Complete Blood Count LAB 12/11/24 Verified 06:00 Date of Service: December 10, 2024 Billing Provider: SUZETTE ARRIAGA MD Common Visit Codes: [id number] INP/OBS CARE(HIGH) Secondary Visit Codes: [id number] CARE PLAN 30 MINUTES SUZETTE ARRIAGA MD December 10, 2024 12:41
[2024-12-10 13:00] VITALS: BP 117/66; PULSE 74; RESP 18; TEMP 97.9; O2SAT 98
--- NOTE | 2024-12-10 15:45 | DVHSR ---
APPROVED REPORT Exam: Nuclear Stress Test Indication: Chest pain Stress Tech: Aleshia Butts Ht: 6 ft 3 in Wt: 250 lbs BSA: 2.41 m2 BMI: 31.24 Medical History Medical History: HTN, FORMER SMOKER, OSMANY ON CKD, GERD, CHRONIC LUMBAR PAIN, MULTIPLE BACK SURGERIES Allergies: No known drug allergies Stress Test Details Stress Test: Pharmacologic stress testing performed using 0.4 mg of regadenoson per 5 mL given IV ov er 10 seconds. Reason for pharmacologic stress test: CHEST PAIN. HR Resting HR: 69 bpmMax Heart Rate (APMHR): 164.765894 bpm Max HR Achieved: 99 bpmTarget HR (85% APMHR): 139.746051 bpm % of APMHR: 60.37 Recovery HR: 83 bpm BP Resting BP: 118/75 mmHg Recovery BP: 127/69 mmHg ECG Resting ECG: Sinus Rhythm Clinical Reason for Termination: Completed protocol Nurse Comments Received patient from Nuclear Medicine. Patient is A&O x4 and on RA. FOR VS please refer back to st ress test assessment documentation. Patient is connected to laboratory monitor. See cardio-neuro proce dural notes for addtional details. PIV flushes well. Reviewed POC and patient verbalizes understand ing and consents to test. Lexiscan stress test performed per protocol. instrument technician apprentice administered the Cardiolite. Pat ient tolerated well and vitals returned to baseline. Transferred to Nuclear Medicine via wheelchair with tech in stable condition. Stress ECG Conclusion lvef 69% nomral perfusion scan no severe ischema noted NM EXAM: Myocardial Perfusion REST/STRESS Resting Data Rest SPECT myocardial perfusion imaging was performed in supine position 45 minutes following the int ravenous injection of 12.3 mCi of Tc-99m Sestamibi. Time of rest injection: 0945 Time of rest imagin Administration Route: IV Administration Site: Right Arm Pharmacologic Stress Pharmacologic stress test was performed by injecting Regadenoson 0.4 mg IV push followed by the intra venous injection of 31.9 mCi of Tc-99m Sestamibi. Time of stress injection: 1110 Time of stress imagin:25:48 Administration Route: IV Administration Site: Right AC Gated Stress SPECT was performed 65 minutes after stress injection. The images were gated to evaluate regional wall motion and calculate left ventricular ejection fracti on. Nuclear Conclusion Nuclear Findings: negative for ischemia lvef 69% nomral perfusion scan no severe ischema noted
[2024-12-10 15:46] LABS: Urine Bacteria None Seen /hpf (None Seen)
[2024-12-10 15:52] LABS: Urine Blood Negative /uL (Negative); Urine Clarity Clear (Clear); Urine Color Light-Yellow (Yellow); Urine Protein, UAD Negative (Negative); Urine Specific Gravity 1.006 (1.001-1.035); Urine Squamous Epithelial Cell None Seen /hpf (<5); Urine Urobilinogen Normal (Negative); Urine WBC < 1 /HPF (0-3)
[2024-12-10 18:48] VITALS: BP 112/61; PULSE 79; RESP 16; TEMP 97.9; O2SAT 94
[2024-12-10 21:06] VITALS: BP 124/62; PULSE 76; RESP 18; TEMP 97.8; O2SAT 94
[2024-12-10 22:20] VITALS: BP 112/64; PULSE 78; RESP 16; TEMP 98.6; O2SAT 95
[2024-12-11 01:00] VITALS: BP 119/62; PULSE 92; RESP 17; TEMP 98.9; O2SAT 97
[2024-12-11 05:00] VITALS: BP 111/57; PULSE 77; RESP 17; TEMP 97.7; O2SAT 96
[2024-12-11 07:13] LABS: Potassium 4.3 mmol/L (3.5-5.1); Sodium 141 mmol/L (136-145)
[2024-12-11 07:14] LABS: Anion Gap 10 (5-15); Carbon Dioxide 24 mmol/L (20-31)
[2024-12-11 07:15] LABS: Calcium 9.9 mg/dL (8.7-10.4)
[2024-12-11 07:20] LABS: BUN/Creatinine Ratio 15.2 (10.0-20.0); Blood Urea Nitrogen 20 mg/dL (9-23); Chloride 107 mmol/L (98-107); Glucose 110 mg/dL (74-106)
[2024-12-11 07:23] LABS: Basophils # (auto) 0 10 ^3/uL (0-0.2); Eosinophils # (auto) 0.1 10 ^3/uL (0-0.8); Eosinophils % (auto) 0.8 % (0.0-7.0); Hemoglobin 11.4 g/dL (13.5-17.5); Lymphocytes # (auto) 1.4 10 ^3/uL (0.4-5.4); Monocytes # (auto) 0.5 10 ^3/uL (0-1.3); Neutrophils % (auto) 78.3 % (37.0-80.0)
[2024-12-11 07:27] LABS: Basophils % (auto) 0.2 % (0.0-2.0); Hematocrit 33.8 % (41.0-53.0); Lymphocytes % (auto) 15.2 % (10.0-50.0); Mean Corpuscular Hemoglobin 26.1 pg (28.0-32.0); Mean Corpuscular Hgb Conc. 33.8 g/dL (32.0-36.0); Mean Corpuscular Volume 77.1 fL (80.0-100.0); Monocytes % (auto) 5.5 % (0.0-12.0); Neutrophils # (auto) 7.3 10 ^3/uL (1.6-8.6); Platelet Count (auto) 266 10^3/uL (140-450); Red Blood Cells 4.38 10^6/uL (4.5-5.90); White Blood Cell 9.3 10^3/uL (4.4-10.8)
[2024-12-11 08:00] VITALS: PULSE 71
[2024-12-11 08:30] VITALS: BP 101/77; PULSE 87; RESP 16; TEMP 98; O2SAT 99
[2024-12-11] MEDS ORDERED: AZITHROMYCIN 500MG/ 250ML 250 ML IV SCH (10:00)
--- NOTE | 2024-12-11 10:18 | DVHDS2 ---
Discharge Summary Date of Admission December 09, 2024 at 20:53 Date of Discharge: December 11, 2024 Labs/Diagnostic Data: Laboratory Results Test 12/11/24 06:04 12/10/24 09:30 12/10/24 06:41 12/10/24 04:14 White Blood Count 9.3 10^3/uL (4.4-10.8) Red Blood Count 4.38 10^6/uL (4.5-5.90) Hemoglobin 11.4 g/dL (13.5-17.5) Hematocrit 33.8 % (41.0-53.0) Mean Corpuscular Volume 77.1 fL (80.0-100.0) Mean Corpuscular Hemoglobin 26.1 pg (28.0-32.0) Mean Corpuscular Hemoglobin Concent 33.8 g/dL (32.0-36.0) Red Cell Distribution Width 15.0 % (11.8-14.3) Platelet Count 266 10^3/uL (140-450) Mean Platelet Volume 9.3 fL (6.9-10.8) Neutrophils (%) (Auto) 78.3 % (37.0-80.0) Lymphocytes (%) (Auto) 15.2 % (10.0-50.0) Monocytes (%) (Auto) 5.5 % (0.0-12.0) Eosinophils (%) (Auto) 0.8 % (0.0-7.0) Basophils (%) (Auto) 0.2 % (0.0-2.0) Neutrophils # (Auto) 7.3 10 ^3/uL (1.6-8.6) Lymphocytes # (Auto) 1.4 10 ^3/uL (0.4-5.4) Monocytes # (Auto) 0.5 10 ^3/uL (0-1.3) Eosinophils # (Auto) 0.1 10 ^3/uL (0-0.8) Basophils # (Auto) 0 10 ^3/uL (0-0.2) Nucleated Red Blood Cells 0.0 % Sodium Level 141 mmol/L (136-145) Potassium Level 4.3 mmol/L (3.5-5.1) Chloride Level 107 mmol/L (98-107) Carbon Dioxide Level 24 mmol/L (20-31) Anion Gap 10 (5-15) Blood Urea Nitrogen 20 mg/dL (9-23) Creatinine 1.32 mg/dL (0.700-1.30) Glomerular Filtration Rate Calc 63 mL/min (>90) BUN/Creatinine Ratio 15.2 (10.0-20.0) Serum Glucose 110 mg/dL (74-106) Calcium Level 9.9 mg/dL (8.7-10.4) Urine Color Light-yellow (Yellow) Urine Clarity Clear (Clear) Urine pH 6.0 (5.0-9.0) Urine Specific [place] 1.006 (1.001-1.035) Urine Protein Negative (Negative) Urine Ketones Negative (Negative) Urine Blood Negative /uL (Negative) Urine Nitrite Negative (Negative) Urine Bilirubin Negative (Negative) Urine Urobilinogen Normal mg/dL (Negative) Urine Leukocyte Esterase Negative /uL (Negative) Urine RBC <1 /hpf (0 - 3) Urine Microscopic WBC < 1 /HPF (0-3) Urine Squamous Epithelial Cells None seen /hpf (<5) Urine Bacteria None seen /hpf (None Seen) Urine Glucose Normal mg/dL (Normal) Urine Opiates Screen Neg (NEGATIVE) Urine Fentanyl Screen Neg (NEGATIVE) Urine Barbiturates Screen Neg (NEGATIVE) Urine Phencyclidine Screen Neg (NEGATIVE) Urine Amphetamines Screen Neg (NEGATIVE) Urine Benzodiazepines Screen Neg (NEGATIVE) Urine Cocaine Screen Neg (NEGATIVE) Urine Cannabinoids Screen Neg (NEGATIVE) Influenza Type A Antigen Negative (Negative) Influenza Type B Antigen Negative (Negative) SARS-CoV-2 Antigen (Rapid) Negative (NEGATIVE) Prothrombin Time 10.5 sec (9.3-11.8) Prothrombin Time INR 0.99 (0.9-1.15) Activated Partial Thromboplast Time 28.5 SEC (24.5-34.5) Hemoglobin A1c 5.6 % A1C (<5.7) Total Bilirubin 0.3 mg/dL (0.2-1.0) Aspartate Amino Transferase (AST) 9 U/L (13-40) Alanine Aminotransferase (ALT) 17 U/L (7-40) Alkaline Phosphatase 86 U/L (46-116) Total Protein 7.2 g/dL (5.7-8.2) Albumin 4.7 g/dL (3.2-4.8) Triglycerides Level 112 mg/dL (< 150) Cholesterol Level 137 mg/dL (< 200) LDL Cholesterol 75 mg/dL (< 100) HDL Cholesterol 43 mg/dL (40-59) Thyroid Stimulating Hormone (TSH) 4.13 uIU/mL (0.55-4.78) Test 12/09/24 19:06 12/09/24 16:21 12/09/24 16:10 Troponin I High Sensitivity 11 ng/L (</=54) C-Reactive Protein High Sensitivity 3.26 mg/dL (<1.0) D-Dimer, Quantitative 0.36 mg/L FEU (0.0-0.49) POC Glucose 129 mg/dl (70-106) Other Laboratory Tests 12/11/24 06:04 Brief Hx & Hospital Course: SEE DICTATED NOTE Condition at Discharge: Fair Final Diagnosis/Problems List CHEST PAIN Discharge Disposition: Home Discharge Instruct/Medications Diet: Cardiac 2g Na,low cholest Activity: No Restrictions, As Tolerated Follow Up/Referral: FU WITH PCP IN 1 WK Medications: RESUME HOME MEDS DC HOME AFTER ECHO Discharge Statement: "Patient was advised to return to the ER or call 911 if any headaches, dizziness, shortness of breath, chest pain, abdominal pain, bleeding, fevers, or worsening of medical condition. Patient was counseled about treatment plan, medications, possible side effects, patient�verbalized understanding. All questions were answered to the best of my ability. This discharge took greater then 30 minutes in planning, reviewing documentation, counseling the patient, and discussing with other team members." ASSESSMENT ASSESSMENT Assessment CHEST PAIN Date of Service: December 11, 2024 Billing Provider: SUZETTE ARRIAGA MD Common Visit Codes: [id number] DISCH DAY >30min SUZETTE ARRIAGA MD December 11, 2024 10:18
--- NOTE | 2024-12-11 11:52 | DVHDS ---
DATE OF DISCHARGE: 12/11/2024 HISTORY OF PRESENT ILLNESS: The patient is a 54-year-old gentleman who was admitted with complaints of chest pain and has a history of hypertension, GERD, and chronic back pain. HOSPITAL COURSE: The patient had a troponin that was negative. He had a Cardiolite stress test that was negative for ischemia with an ejection fraction of 69%. The patient had an elevated creatinine of about 1.3. The patient's chest x-ray showed right basal atelectasis. He will now be discharged home after an echocardiogram is done to resume his home medications and follow up with his primary in 1 week. FINAL DIAGNOSES: * Chest pain, questionable GERD with stress test being negative. * Hypertension. * Likely CKD stage 3. * Obesity. * DJD of spine. * Anxiety/depression. Time spent in discharge planning and review of plan with the patient and family at bedside was 38 minutes. MD ROGE Fleming/NOE TID: [id number] RECEIPT: [id number]
--- NOTE | 2024-12-12 16:00 | DVHSR ---
APPROVED REPORT EXAM: Two-dimensional and M-mode echocardiogram with Doppler and color Doppler. Blood Pressure: 111/57 mmHg INDICATION Chest Pain RISK FACTORS Obesity: Height: 6'3, Weight: 250 DIMENSIONS LVDd4.5 (3.8-5.7cm)LA (2D)4.3 (1.9-4.0cm)Aortic Root3.4 (2.0-3.7cm) LVDs3.3 (2.5-4.0cm)LA (MM) (1.9-4.0cm)Aortic Cusp Exc2.0 (1.5-2.0cm) EF (%) 55.0 (55-70%)Rt. Atrium3.5 (1.9-4.0cm)Asc. Aorta cm IVSd0.9 (0.7-1.1cm)RV (D)4.2 (1.8-2.4cm) PWd1.0 (0.7-1.1cm) Mitral Valve MitralMitral Stenosis E wave0.86m/sMV Mean GR.mmHg A wave0.69m/sMV Peak GR.mmHg E/A ratio1.22D MVAcm2 DECEL [id number] 1/2 [place] Aortic Valve Aortic ValveAortic Stenosis V11.36m/[place] Mean GR.6mmHg V21.59m/[place] Peak GR.10mmHg LVOT Diameter2.3 (1.8-2.4cm)Doppler AVA3.55cm2 Pulmonic Valve V21.23m/s Tricuspid Valve TR Velocity2.29m/s [id number] Conclusion Sinus rhythm. Biatrial enlargement. Valves are normal. 65% ejection fraction. Normal RV function. Dopplers unremarkable. Mild TR. No pericardial effusion masses or vegetations.
== END 2024-12-11 13:40 | disposition home or self-care (01) | DRG 391 ==
LOC: ER 16:03 → OVERFLOW 20:53 → TELE-CENTR 12-10 22:10
PROVIDERS: ADMIT Internal Medicine; ATTEND Internal Medicine
DX: K21.9 Gastro-esophageal reflux disease without esophagitis (principal); J96.00 Acute respiratory failure, unspecified whether with hypoxia or hypercapnia; N17.9 Acute kidney failure, unspecified; J44.1 Chronic obstructive pulmonary disease with (acute) exacerbation; E78.5 Hyperlipidemia, unspecified; E66.9 Obesity, unspecified; N18.30 Chronic kidney disease, stage 3 unspecified; F17.210 Nicotine dependence, cigarettes, uncomplicated; F41.9 Anxiety disorder, unspecified; G89.29 Other chronic pain; M47.896 Other spondylosis, lumbar region; I12.9 Hypertensive chronic kidney disease with stage 1 through stage 4 chronic kidney disease, or unspecified chronic kidney disease; E11.22 Type 2 diabetes mellitus with diabetic chronic kidney disease; F32.A Depression, unspecified; Z82.49 Family history of ischemic heart disease and other diseases of the circulatory system; Z79.899 Other long term (current) drug therapy; Z68.31 Body mass index [BMI] 31.0-31.9, adult
CPT/HCPCS: 36415; 71045; 78452; 80048; 80053; 80061; 80307; 81001; 82962; 83036; 84443; 84484; 85025; 85379; 85610; 85730; 86141; 87081; 87426; 87804; 93005; 93017; 93306; 96374; 96375; 99291; G0378; J2405; J2470